=== PATIENT | male | born 1950 | race Native Hawaiian/Other Pacific Islander ===

== ENCOUNTER 2020-12-03 07:47 | Outpatient (CLI) | payer OTHER | END 2020-12-03 20:30 | disposition home or self-care (01) | LOC: US 07:47 | PROVIDERS: ATTEND Nurse Practitioner Family | DX: I10 Essential (primary) hypertension (principal); N19 Unspecified kidney failure; J44.9 Chronic obstructive pulmonary disease, unspecified; E78.1 Pure hyperglyceridemia; Z87.898 Personal history of other specified conditions; F17.200 Nicotine dependence, unspecified, uncomplicated ==

== ENCOUNTER 2022-07-07 10:55 | Outpatient (CLI) | payer OTHER | END 2022-07-07 19:14 | disposition home or self-care (01) | LOC: RAD 10:55 | PROVIDERS: ATTEND Nurse Practitioner Family | DX: M54.89 Other dorsalgia (principal); M25.551 Pain in right hip; M25.552 Pain in left hip ==

== ENCOUNTER 2022-10-28 09:58 | Outpatient (CLI) | payer OTHER | END 2022-10-28 19:06 | disposition home or self-care (01) | LOC: RAD 09:58 | PROVIDERS: ATTEND Nurse Practitioner Family | DX: R06.02 Shortness of breath (principal); R06.2 Wheezing ==